=== PATIENT | male | born 1995 | race African-American/Black ===

== ENCOUNTER → 2017-01-13 08:36 | Emergency (ER) | payer SELFPAY ==
[~2017-01-13 08:36] MED LIST: Ciproflox/Dexameth OTIC.SUSP* 7.5 ML BTL LEFT EAR ONE; Ibuprofen TAB* 400 MG PO ONE
[2017-01-13 08:40] VITALS: BP 138/81
--- NOTE | 2017-01-13 09:16 | ED ---
Throat Pain/Nasal Congestion - HPI Summary HPI Summary: Patient presents with 3 days of ear pain that has not improved. He denies recent illness or fevers. His hearing is intact but mildly decreased. He has wax in the ear but no active drainage. He denies history of ear infections. - History of Current Complaint Chief Complaint: EDGeneral Time Seen by Provider: 01/13/17 08:58 Hx Obtained From: Patient Onset/Duration: Gradual Onset Severity: Moderate Associated Signs And Symptoms: Positive: Negative Cough: None - Allergies/Home Medications Allergies/Adverse Reactions: Allergies Allergy/AdvReac Type Severity Reaction Status Date / Time No Known Allergies Allergy Verified 07/06/15 15:06 PMH/Surg Hx/FS Hx/Imm Hx Previously Healthy: Yes Endocrine/Hematology History: Denies: Hx Diabetes, Hx Thyroid Disease Cardiovascular History: Denies: Hx Hypertension Respiratory History: Denies: Hx Asthma, Hx Chronic Obstructive Pulmonary Disease (COPD) GI History: Denies: Hx Ulcer Infectious Disease History: Denies: Hx Hepatitis, Hx Human Immunodeficiency Virus (HIV), Hx Tuberculosis , Traveled Outside the in Last 30 Days - Family History Known Family History: Positive: None - Social History Occupation: Employed Full-time Lives: With Family Alcohol Use: Occasionally Substance Use Type: Reports: None Smoking Status (MU): Never Smoked Tobacco Review of Systems Negative: Fever, Chills Positive: Ear Ache. Negative: Sore Throat, Nasal Discharge Negative: Headache All Other Systems Reviewed And Are Negative: Yes Physical Exam Triage Information Reviewed: Yes Vital Signs On Initial Exam: Initial Vitals Temp Pulse Resp BP Pulse Ox 98.3 F 78 18 138/81 100 01/13/17 08:37 01/13/17 08:37 01/13/17 08:37 01/13/17 08:37 01/13/17 08:37 Vital Signs Reviewed: Yes Appearance: Positive: Well-Appearing, Well-Nourished, Pain Distress Skin: Positive: Warm, Skin Color Reflects Adequate Perfusion, Dry, Soft Head/Face: Positive: Normal Head/Face Inspection Eyes: Positive: EOMI, IDNIRA, Conjunctiva Clear ENT: Positive: Hearing grossly normal, TMs normal - left aural canal is erythematous and edematous without drainage. Negative: Nasal congestion Neck: Positive: Supple, Nontender, No Lymphadenopathy Respiratory/Lung Sounds: Positive: Breath Sounds Present Cardiovascular: Positive: RRR Musculoskeletal: Negative: Edema Left, Edema Right Neurological: Positive: Sensory/Motor Intact, Alert, Oriented to Person Place, Time, [place] Bundle Intact Distally, Normal Gait Psychiatric: Positive: Affect/Mood Appropriate AVPU Assessment: Alert Diagnostics - Vital Signs Vital Signs Temp Pulse Resp BP Pulse Ox 01/13/17 08:37 98.3 F 78 18 138/81 100 - Laboratory Lab Statement: Any lab studies that have been ordered have been reviewed, and results considered in the medical decision making process. EENT Course/Dx - Differential Diagnoses Differential Diagnoses: Barotrauma, Cerumen Impaction, Contusion, Otitis Externa , Otitis Media, Temporal Arteritis - Diagnoses Provider Diagnoses: Otitis externa Discharge - Discharge Plan Condition: Stable Disposition: HOME Patient Education Materials: Otitis Externa (ED) Referrals: [facility] [Outside] Additional Instructions: Please take ibuprofen 600mg three times daily with meals for the next 3-5 days to decrease pain and swelling. Place 4 drops in your left ear every 12 hours for the next 7 days. If symptoms have not begun to improve in the next 48-72 hours follow-up at this emergency department or [facility] for re- evaluation. Return sooner if symptoms worsen.
== END | disposition home or self-care (01) ==
LOC: ED 08:36
DX: H60.90 Unspecified otitis externa, unspecified ear (principal); H92.09 Otalgia, unspecified ear
CPT/HCPCS: 99282; A9270-GY